=== PATIENT | female | born 1990 | race Two or more races ===

== ENCOUNTER 2016-10-09 18:56 | Emergency (ER) | payer OTHER ==
[~2016-10-09] VITALS: Ht 144.8 cm; Wt 68.0 kg
[2016-10-09 19:23] VITALS: BP 112/87
[2016-10-09] MEDS ORDERED: Methocarbamol 750mg tab ORAL ONE (20:15)
[2016-10-09] MEDS ORDERED: ROBAXIN-750750 MG PO (21:16)
[2016-10-09] MEDS ORDERED: TYLENOL EXTRA500 MG ORAL (21:16)
[2016-10-09 21:30] VITALS: BP 115/81
--- NOTE | 2016-10-09 21:40 | Emergency Room Report ---
History of Present Illness General Chief Complaint: Pain Source: Patient Present Illness HPI The patient is a 26 old female presenting with neck pain and bilateral arm pain. The patient states that she was a heavy object at work this afternoon and felt an immediate sharp pain of the neck which radiated down to the shoulders and arms. She also noticed a tingling sensation of both arms. She denies prior injury to the neck. It is described as an 8/10 dull ache. She denies any other injury or pain. She denies any other symptoms such as N, V, F, chills, [place], dizziness, blurred vision Allergies: Coded Allergies: ASPIRIN (Verified Allergy, Unknown, 10/09/16) Lobster (Verified Allergy, Unknown, 10/09/16) Shrimp (Verified Allergy, Unknown, 10/09/16) Patient History Past Medical History: see triage record Pertinent Family History: none Last Menstrual Period: 09/10/16 Now: No Reviewed Nursing Documentation: PMH: Agreed, PSxH: Agreed Nursing Documentation-PMH Past Medical History: No History, Except For Review of Systems All Other Systems: negative except mentioned in HPI Physical Exam Vital Signs Date Time Temp Pulse Resp B/P Pulse Ox O2 Delivery O2 Flow Rate FiO2 10/09/16 19:49 97.9 89 16 115/81 100 Room Air Sp02 EP Interpretation: reviewed, normal General Appearance: no apparent distress, alert, GCS 15, non-toxic Head: normocephalic, atraumatic Eyes: bilateral eye PERRL, bilateral eye normal inspection ENT: hearing grossly normal, normal pharynx, no angioedema, normal voice Neck: full range of motion, no bony tend, supple/symm/no masses, tender lateral Cardiovascular #1: regular rate, rhythm, no edema Musculoskeletal: normal inspection, back normal, gait/station normal, normal range of motion Neurologic: alert, oriented x3, responsive, sensory intact, normal gait, speech normal, motor weakness - bilat hand flexion Psychiatric: judgement/insight normal, memory normal, mood/affect normal, no suicidal/homicidal ideation Lymphatic: no adenopathy Medical Decision Making PA Attestation Dr. Santos is my supervising physician. Patient management was discussed with my supervising physician Diagnostic Impression: Primary Impression: Cervical strain Qualified Codes: S16.1XXA - Strain of muscle, fascia and tendon at neck level , initial encounter ER Course The patient is a 26 old female presenting with neck pain and bilateral arm pain. Differential diagnoses considered but not limited to: Cervical strain, disc herniation, fracture PE: vitals WNL.NAD Head NC/AT PERRL A&Ox3 Neck: soft and supple. Full AROM. TTP over bilat paraspinous muscles. No midline tenderness. No step-offs Full AROM of shoulders and elbows Decreased bilat training and documentation specialist strength C spine xray shows straightening. Pt is given robaxin and will be DC'ed home. She is informed she may need MRI and to FU with PMD. ER precautions given. She will FU with workers compensation Other X-Ray Diagnostic Results Other X-Ray Diagnostic Results : X-Ray Ordered: C spine Date: Oct 09, 2016 EP Interpretation: Yes Findings: no fractures, no dislocation, no soft tissue swelling Number of Views: 4 PA Scribe Text I am acting as scribe for my supervising physician. My supervising physician's interpretation of the C spine xrays are there are no fractures, dislocations or soft tissue swelling. Last Vital Signs Date Time Temp Pulse Resp B/P Pulse Ox O2 Delivery O2 Flow Rate FiO2 10/09/16 19:49 97.9 89 16 115/81 100 Room Air Status: improved Disposition: HOME, SELF-CARE Condition: Improved Scripts Acetaminophen* (TYLENOL EXTRA STRENGTH*) 500 Mg Tablet 500 MG ORAL Q8H Y for Prn Headache/Temp > 101, #30 TAB 0 Refills Prov: TERREGINAANEDY P.A. 10/09/16 Methocarbamol* (ROBAXIN-750*) 750 Mg Tablet 750 MG PO TID, #21 TAB 0 Refills Prov: TERZIANEDY P.A. 10/09/16 Patient Instructions: Cervical Sprain Additional Instructions: I discussed my findings with the patient. All questions and concerns have been answered. Treatment and medication compliance have been addressed. I advised the patient that they need to follow up with PMD in 3-5 days. Return to ED if pain remains or worsens, numbness or tingling occurs, new rash is noticed, fever is noticed, or if needed for any reason. Patient verbalized understanding of discharge instructions. The patient is informed that she may need MRI if symptoms continue EDY [email or web address] Oct 09, 2016 21:40
--- NOTE | 2016-10-10 14:28 | Diagnostic Imaging Report ---
Indication: PAIN Technique: 3 views of the cervical spine Comparison: none Findings: There is slight straightening of the normal cervical lordosis, otherwise normal bony alignment. No prevertebral soft tissue swelling. Vertebral body heights are preserved. Disc spaces are preserved. No acute fractures. No dislocations. Impression: Negative
== END 2016-10-09 21:30 | disposition home or self-care (01) ==
LOC: EMR 19:30
DX: S16.1XXA Strain of muscle, fascia and tendon at neck level, initial encounter (principal); M79.602 Pain in left arm; M79.601 Pain in right arm; Z79.82 Long term (current) use of aspirin; Z91.018 Allergy to other foods
CPT/HCPCS: 72040; 99284